=== PATIENT | female | born 1950 | race Caucasian/White ===

== ENCOUNTER 2024-08-16 10:36 | Emergency (ER) | payer OTHER, SELFPAY ==
[2024-08-16 10:39] VITALS: BP 190/95
--- NOTE | 2024-08-16 10:39 | ED.GENMED ---
ED Provider Triage
<Ericka Marie PA-C - Last Filed: 08/16/24 16:29>
-
Patient seen by provider in Triage?: Seen in Triage
Attestation: A medical screening examination has been initiated by a qualified medical provider. Based on the assessment performed at this time, it has been determined that an emergent medical condition may exist and the patient has been informed
that further medical evaluation and possible additional diagnostic testing may be needed.
HPI: 73yoF here after a syncopal episode around 5:30pm last night. She was on a 3 mile walk when she started to feel dizzy and felt like she had to sit down before passing out. Today feels like her heart is racing and sinus pressure.
GENERAL: Alert , in no apparent distress
EYE: No visual abnormalities.
NECK: Trachea midline
ENT: No visible abnormalities.
LUNGS: No acute respiratory distress
NEUROLOGICAL: Alert and oriented
SKIN: Skin intact. No visible changes.
MUSCULOSKELETAL: Moving extremities normally
PSYCH: Normal and appropriate interaction.
This is a medical evaluation conducted in person to initiate diagnostic evaluation and provide initial therapeutics. Please see further documentation by the treating clinician.
Cardiac labs and EKG ordered.
History of Present Illness
<Ericka Marie PA-C - Last Filed: 08/16/24 16:29>
General
Chief Complaint: Fainting/Passed Out
Time Seen by Provider: 08/16/24 12:20
<Charlotte Green DO - Last Filed: 08/16/24 13:09>
History of Present Illness
History of Present Illness:
73-year-old female no past medical history presenting status post syncopal episode yesterday. Patient states that yesterday, she went for her typical 3 mile walk. Patient states that at the end of her walk, she felt dizzy and had a syncopal
episode. Patient denies striking her head. Patient states that was witnessed by her friend who she was walking with. Patient denies any headaches, numbness, weakness, tingling, chest pain, shortness of breath. Patient states that this never
happened before. Patient notes that she only drank coffee yesterday. Patient states that she went home, drink a lot of water, seltzer and decaffeinated tea and then went to bed. Patient states that overnight she was having sinus pressure and felt
like her heart was racing. Patient denies any symptoms at this current time.
Phy Exam
<Charlotte Green DO - Last Filed: 08/16/24 13:09>
Physical Exam
Physical Exam:
General: Alert, no acute distress
Head: NCAT
Eyes: clear conjunctiva, PERRLA, EOMI
Neck: supple
Cardiac: regular rate and rhythm, no murmur
Lungs: clear to auscultation bilaterally. No wheezes, rales, or rhonchi. Speaking full unlabored sentences. No respiratory distress.
Abdomen: soft, nondistended nontender. No rebound or guarding.
MSK: no lower extremity edema bilaterally. No deformity
Skin: warm, dry
Neuro: Alert and oriented x3. CN II-XII grossly intact with no focal deficits. normal finger to nose. 5/5 strength bilateral upper and lower extremities. sensation intact throughout
Course
<Ericka Marie PA-C - Last Filed: 08/16/24 16:29>
Orders/Labs/Results
Orders:
Orders
08/16/24 10:42
Electrocardiogram (*1) Urgent
Reason for Study: Syncope
EKG- Treatment ONCE
08/16/24 10:53
Complete Blood Count/With Diff Urgent
Comprehensive Metabolic Panel Urgent
Troponin I Urgent
Abnormal Lab Results
08/16/24
10:53
WBC 4.7 L 10^3/uL
(4.8-10.8)
MCH 31.2 H pg
(27.0-31.0)
MPV 11.0 H fL
(7.4-10.4)
Absolute Lymphs (auto) 1.1 L 10^3/uL
(1.2-3.4)
Carbon Dioxide 31 H mmol/L
(22-30)
08/16/24 10:53
08/16/24 10:53
Vital Signs
Initial and Last Documented VS:
Initial Vital Signs
Temp Pulse Resp BP Pulse Ox
98.2 F 63 18 190/95 98
08/16/24 10:39 08/16/24 10:39 08/16/24 10:39 08/16/24 10:39 08/16/24 10:39
Last Documented Vital Signs
Temp Pulse Resp BP Pulse Ox
98.2 F 58 26 159/90 97
08/16/24 10:39 08/16/24 13:00 08/16/24 13:00 08/16/24 13:00 08/16/24 13:00
<Charlotte Green, DO - Last Filed: 08/16/24 13:09>
Orders/Labs/Results
Orders:
Orders
08/16/24 10:42
Electrocardiogram (*1) Urgent
Reason for Study: Syncope
EKG- Treatment ONCE
08/16/24 10:53
Complete Blood Count/With Diff Urgent
Comprehensive Metabolic Panel Urgent
Troponin I Urgent
Abnormal Lab Results
08/16/24
10:53
WBC 4.7 L 10^3/uL
(4.8-10.8)
MCH 31.2 H pg
(27.0-31.0)
MPV 11.0 H fL
(7.4-10.4)
Absolute Lymphs (auto) 1.1 L 10^3/uL
(1.2-3.4)
Carbon Dioxide 31 H mmol/L
(22-30)
08/16/24 10:53
08/16/24 10:53
Vital Signs
Initial and Last Documented VS:
Initial Vital Signs
Temp Pulse Resp BP Pulse Ox
98.2 F 63 18 190/95 98
08/16/24 10:39 08/16/24 10:39 08/16/24 10:39 08/16/24 10:39 08/16/24 10:39
Last Documented Vital Signs
Temp Pulse Resp BP Pulse Ox
98.2 F 58 26 159/90 97
08/16/24 10:39 08/16/24 13:00 08/16/24 13:00 08/16/24 13:00 08/16/24 13:00
<Charlotte Green DO - Last Filed: 08/16/24 13:09>
MDM/Problems Addressed
Differential Diagnosis Includes:
amy, nstemi, orthostatic hypotension, vasovagal syncope, anemia
MDM/Problems Addressed:
73yoF presenting with dizziness and subsequent syncopal episode yesterday at the end of her 3 mile walk. Pt states she only drank coffee prior to walking. Pt states it was warm outside. Pt denies any headache, chest pain, shortness of breath. Not on
blood thinners. No history of similar symptoms. Heart RRR, no murmur, lungs clear, neurologically intact with no focal deficits, head NCAT. Labs reviewed. Hemoglobin 13.4. Electrolytes within normal limits. Troponin within normal limits. EKG shows
NSR at 61bpm with OH 140 QTc 416 no acute ischemic changes. Vitals within normal limits. Suspect orthostatic given pt had walked 3 miles in the heat, felt dizzy prior to syncopal episode, was not hydrated prior to walk. Discussed results with
patient at bedside. Stable for discharge with PCP follow up
ED Attending Note
<Ericka Marie PA-C - Last Filed: 08/16/24 16:29>
-
Portions of this chart may have been created with voice recognition software.� Occasional wrong word or��sound alike� substitutions may have occurred due to the inherent limitations of voice recognition software.
Discharge Plan
Departure
Patient Disposition: Home (Routine Discharge)
Date of Disposition: 08/16/24
Time of Disposition: 13:09
Patient with high blood pressure during this ER visit?: Yes
Discharge Problem:
Dizziness, Syncope
Instructions: Syncope (Fainting) (DC), BLOOD PRESSURE
Referrals:
Shabnam Boyer, DO [Family Provider] -
Activity Restrictions/Additional Instructions:
Drink water, stay hydrated
Follow up with primary care doctor in 1-2 days
Return to the emergency department for chest pain, shortness of breath, numbness, weakness, tingling or new/worsening symptoms
Interventions
Interventions:
*Risk Screen - Suicide Last Done: 08/16/24 10:39
*General Assessment Last Done: 08/16/24 10:39
*Neglect/Abuse Screening Last Done: 08/16/24 10:39
ED- Fall Risk Assessment Last Done: 08/16/24 11:59
*ED COVID-19 Vaccine History Last Done: 08/16/24 10:39
*Nursing Disposition Last Done: 08/16/24 13:26
ED- Cardiac Assessment Last Done: 08/16/24 11:59
ED- Neurological Assessment Last Done: 08/16/24 11:59
Discharge Date and Time
Discharge Date/Time: 08/16/24 13:26
Print Language: [place]ET[place]ESE
[2024-08-16 11:03] LABS: % Basophils 1.5 % (0-2); % Immature Granulocytes 0.2 % (0-0.5); % Lymphocytes 22.9 % (20.5-51.1); % Monocytes 6.8 % (1.7-9.3); % Neutrophils 65.6 % (42.2-75.2); Absolute Basophils 0.1 10^3/uL (0-0.2); Absolute Eosinophils 0.1 10^3/uL (0-0.7); Absolute Lymphocytes 1.1 10^3/uL (1.2-3.4); Absolute Monocytes 0.3 10^3/uL (0.1-0.6); Absolute Neutrophils 3.1 10^3/uL (1.4-6.5); Hematocrit 38.7 % (37.0-47.0); Hemoglobin 13.4 g/dL (12.0-16.0); Mean Corp Hgb Conc. 34.6 g/dL (33.0-37.0); Mean Corpuscular Hgb 31.2 pg (27.0-31.0); Mean Corpuscular Volume 90.2 fL (81.0-99.0); Nucleated Red Blood Cells % 0 %; Platelet Count 148 10^3/uL (130-400); Red Blood Cell Count 4.29 10^6/uL (4.20-5.40); Red Cell Dist. Width 12.1 % (11.5-14.5); White Blood Cell Count 4.7 10^3/uL (4.8-10.8)
[2024-08-16 11:14] LABS: ALT (SGPT) 22 U/L (0-35); AST (SGOT) 29 U/L (14-36); Alkaline Phosphatase 63 U/L (38-126); Blood Urea Nitrogen 14 mg/dl (7-17); Calcium 9.6 mg/dl (8.4-10.2); Carbon Dioxide 31 mmol/L (22-30); Chloride 102 mmol/L (98-107); Glucose 86 mg/dl (70-99); Potassium 4.3 mmol/L (3.5-5.1); Sodium 140 mmol/L (135-145); Total Bilirubin 0.8 mg/dl (0.2-1.3); Total Protein 6.4 g/dl (6.3-8.2); eGFR > 60.00
[2024-08-16 11:24] LABS: Troponin I < 0.012 ng/ml
[2024-08-16 12:01] VITALS: BP 189/101
[2024-08-16 13:00] VITALS: BP 159/90
== END 2024-08-16 13:26 | disposition home or self-care (01) ==
LOC: EMR 10:36
PROVIDERS: Physician Assistant; EMERGENCY PHYSICIAN Emergency Medicine; FAMILY PHYSICIAN Family Medicine
DX: R55 Syncope and collapse (principal)
CPT/HCPCS: 99283; 80053; 84484; 85025; 93005

== ENCOUNTER 2024-08-18 18:19 | Emergency (ER) | payer OTHER, SELFPAY ==
[2024-08-18 18:25] VITALS: BP 218/119
[2024-08-18 18:47] LABS: % Basophils 0.8 % (0-2); % Immature Granulocytes 0.4 % (0-0.5); % Lymphocytes 16.8 % (20.5-51.1); % Monocytes 5.8 % (1.7-9.3); % Neutrophils 75.2 % (42.2-75.2); Absolute Basophils 0.1 10^3/uL (0-0.2); Absolute Eosinophils 0.1 10^3/uL (0-0.7); Absolute Lymphocytes 1.4 10^3/uL (1.2-3.4); Absolute Monocytes 0.5 10^3/uL (0.1-0.6); Absolute Neutrophils 6.3 10^3/uL (1.4-6.5); Hematocrit 39.5 % (37.0-47.0); Hemoglobin 13.8 g/dL (12.0-16.0); Mean Corp Hgb Conc. 34.9 g/dL (33.0-37.0); Mean Corpuscular Hgb 30.9 pg (27.0-31.0); Mean Corpuscular Volume 88.4 fL (81.0-99.0); Mean Platelet Volume 11.1 fL (7.4-10.4); Nucleated Red Blood Cells % 0 %; Platelet Count 166 10^3/uL (130-400); Red Blood Cell Count 4.47 10^6/uL (4.20-5.40); Red Cell Dist. Width 11.7 % (11.5-14.5); White Blood Cell Count 8.4 10^3/uL (4.8-10.8)
[2024-08-18 19:00] LABS: ALT (SGPT) 24 U/L (0-35); AST (SGOT) 33 U/L (14-36); Albumin 4.6 g/dl (3.5-5.0); Alkaline Phosphatase 70 U/L (38-126); Blood Urea Nitrogen 15 mg/dl (7-17); Calcium 9.7 mg/dl (8.4-10.2); Carbon Dioxide 30 mmol/L (22-30); Chloride 97 mmol/L (98-107); Glucose 100 mg/dl (70-99); Potassium 4.7 mmol/L (3.5-5.1); Sodium 135 mmol/L (135-145); Total Bilirubin 1.3 mg/dl (0.2-1.3); Total Protein 6.9 g/dl (6.3-8.2); eGFR > 60.00
[2024-08-18 21:43] VITALS: BP 205/96
[2024-08-18 21:45] VITALS: BMI 24.3
[2024-08-18 22:00] VITALS: BP 174/90
[2024-08-18 22:30] VITALS: BP 173/89
--- NOTE | 2024-08-18 23:51 | ED.GENMED ---
History of Present Illness
General
Chief Complaint: Blood Pressure Problem
Source: patient, family (Daughter at bedside) and previous hospital records (ED visit from 2 days ago)
Exam Limitations: none
Time Seen by Provider: 08/18/24 22:14
Nursing documentation reviewed up to this point in time: agreed with
History of Present Illness
History of Present Illness:
This is a 73-year-old woman with no significant past medical history who initially presented to this ED 2 days ago with complaints of syncopal episode that occurred the previous day after completing her usual 3 mile walk. She noted an abrupt onset
of lightheadedness, feeling faint causing her to reposition to place her head between her knees and the next thing she knows she was lying on the ground with her friend next to her. Symptoms resolved quickly and she was able to get up and walk to
her car and drive home without difficulty. No recurrent episodes but later that evening she developed some palpitations feeling that her heart was beating somewhat hard and mildly rapid without a sense of skipping beats thus she presented to the ED
the following day, 2 days ago. She has had no recurrent episodes of lightheadedness but she does admit that she feels that she is 'in a fog' and also notes mild left-sided head pressure. She denies hitting her head/no head injury during syncopal
event that was witnessed by her friend.
She was noted to be moderately hypertensive 2 days ago during that ED visit and since then she has been monitoring her blood pressure and is concerned with consistently elevated blood pressure. She admits that she has been checking her blood
pressure multiple times throughout the day today.
She denies chest pain, no further palpitations, no shortness of breath. She has continued her 3 mile brisk walks on a daily basis without symptomatology.
She does admit to mild sinus pressure but has not had a sore throat, no rhinorrhea, no fever, no ear pain. No vision difficulty.
She states routine visit with her primary care physician 1 month ago, BP within normal limits.
She takes no medicines on a daily basis. Denies decongestant use.
Past History
Past History
ED Past Medical History: None
ED Past Surgical History: Tonsilectomy and Other (Hernia repair)
Social History
Tobacco: Non-smoker
Alcohol: Occasional (Rare)
Drug: None
Personal: Single
Employment: Retired
Family History
Family History: Other (Noncontributory)
Phy Exam
Physical Exam
Physical Exam:
GENERAL: 73-year-old woman appears her stated age, awake and alert, pleasant, appears in no acute distress. Very mild, nasal sounding voice without significant congestion.
EYE: pupils equal and reactive. Extraocular muscles intact. Anicteric
NECK: Supple, nontender, no meningismus, no significant adenopathy.
ENT: posterior pharynx is clear, oral mucosa is moist. TM clear b/l, nares with moderately boggy pale blue turbinates.
CARDIAC: Regular rate and rhythm. no murmur.
LUNGS: Clear breath sounds bilaterally, no acute respiratory distress, no wheezes/rales/rhonchi
ABDOMEN: Soft, nondistended, without focal tenderness, no r/g, normoactive BS.
NEUROLOGICAL: Alert and oriented x3, no focal neuro deficits. Gait is steady.
SKIN: Warm and dry, normal color, skin intact. No rash.
MUSCULOSKELETAL: No C/C/E. peripheral pulses are full and equal b/l. No palpable tenderness.
PSYCH: Normal and appropriate interaction.
Course
Orders/Labs/Results
Orders:
Orders
08/18/24 18:30
Electrocardiogram (*1) Urgent
Reason for Study: Chest Pain
EKG- Treatment ONCE
08/18/24 18:41
Complete Blood Count/With Diff Urgent
Comprehensive Metabolic Panel Urgent
08/18/24 22:52
CT Head W/o Iv Contrast Urgent
Comment:
Reason For Exam: acute left sided H/A, HTN
Abnormal Lab Results
08/18/24
18:41
MPV 11.1 H fL
(7.4-10.4)
Lymphocytes % 16.8 L %
(20.5-51.1)
Chloride 97 L mmol/L
(98-107)
Glucose 100 H mg/dl
(70-99)
08/18/24 18:41
08/18/24 18:41
Vital Signs
Initial and Last Documented VS:
Initial Vital Signs
Temp Pulse Resp BP Pulse Ox
97.7 F 71 16 218/119 98
08/18/24 18:25 08/18/24 18:25 08/18/24 18:25 08/18/24 18:25 08/18/24 18:25
Last Documented Vital Signs
Temp Pulse Resp BP Pulse Ox
97.7 F 60 18 173/89 95
08/18/24 18:25 08/18/24 22:30 08/18/24 22:30 08/18/24 22:30 08/18/24 22:30
MDM/Problems Addressed
Differential Diagnosis Includes:
Patient presents with elevated BP without prior history of hypertension. She does note mild left frontal headache and has had some sinus congestion.
She may have element of allergic rhinitis, sinus headache but must also consider intracranial bleeding, mass.
Syncopal event from 3 days ago was also concerning but reassuring that she has had no recurrent episodes and has remained active, exercising on a regular basis without symptomatology.
Will check CT of the head.
Will check labs assess for potential end-organ damage.
EKG similar to previous, normal sinus rhythm at 64. Low voltage, otherwise unremarkable.
*Radiology
Radiology exam reviewed: radiology read reviewed (CT of the head is unremarkable)
*Pulse Oximetry
Patient hypoxic: no
*EKG
Interpreted by ED Provider?: Yes
Interpretation: normal
Comparison EKG: no changes (Unchanged from previous August 16)
Rate: normal
Rhythm: sinus
[place]: normal axis
QRS Pattern: low voltage
Ischemia: no ischemia
*Christ[facility] Bell Ringer Interpretation
Rate: normal
Interpretation: normal
Rhythm: sinus
*Critical Care Note
Total Time (30-74mins, 75-104mins- exclusive of procedures): Not Applicable
Update Note
Update Note:
Blood pressure improving without intervention. Continues with mild to moderate systolic hypertension with normal diastolic readings.
She continues with very mild left frontal head discomfort but overall well in appearance, no focal neurodeficits.
Moderate allergic rhinitis appearance on exam. And I suspect an element of a sinus headache.
CT of the head is unremarkable.
Labs are unremarkable.
At this point would not initiate antihypertensive medication but would recommend she continue to monitor blood pressure but no more than once per day, record results with prompt follow-up with PCP.
She notes previous adverse reaction to nasal steroids as well as oral steroids causing some agitation, anxiety thus recommend trial of a nasal antihistamine for allergic rhinitis as well as Tylenol for headache.
ED Attending Note
-
Portions of this chart may have been created with voice recognition software.� Occasional wrong word or��sound alike� substitutions may have occurred due to the inherent limitations of voice recognition software.
Discharge Plan
Departure
Patient Disposition: Home (Routine Discharge)
Date of Disposition: 08/19/24
Time of Disposition: 00:37
Patient with high blood pressure during this ER visit?: Yes
Condition: Good
Discharge Problem:
Elevated blood pressure reading without diagnosis of hypertension, Sinus headache
Instructions: Sinus Headache (DC), BLOOD PRESSURE
Referrals:
Shabnam Boyer, DO [Family Provider] - Follow up in 2-3 days
Activity Restrictions/Additional Instructions:
Continue to monitor your blood pressure but no more than once per day, record results and follow-up with primary care physician with recordings.
You may take Tylenol as needed for headache and recommend trial of an antihistamine nasal spray, such as Astelin, for seasonal allergy.
Interventions
Interventions:
*Risk Screen - Suicide Last Done: 08/18/24 18:25
*General Assessment Last Done: 08/18/24 18:25
*Neglect/Abuse Screening Last Done: 08/18/24 18:25
ED- Fall Risk Assessment Last Done: 08/18/24 21:45
*ED COVID-19 Vaccine History Last Done: 08/18/24 21:45
*Nursing Disposition Last Done: 08/19/24 02:22
ED- Cardiac Assessment Last Done: 08/18/24 21:46
ED- Neurological Assessment Last Done: 08/18/24 21:46
ED- Pulmonary Assessment Last Done: 08/18/24 21:46
Discharge Date and Time
Discharge Date/Time: 08/19/24 02:23
Print Language: [place]
== END 2024-08-19 02:23 | disposition home or self-care (01) ==
LOC: EMR 18:19
PROVIDERS: Emergency Medicine; EMERGENCY PHYSICIAN Emergency Medicine; FAMILY PHYSICIAN Family Medicine
DX: R51.9 Headache, unspecified (principal); R03.0 Elevated blood-pressure reading, without diagnosis of hypertension; J34.89 Other specified disorders of nose and nasal sinuses
CPT/HCPCS: 99284; 70450; 80053; 85025; 93005

== ENCOUNTER → 2025-02-14 08:24 | Outpatient (REF) | payer OTHER, SELFPAY | LOC: RCS 08:24 | PROVIDERS: ATTENDING PHYSICIAN Internal Medicine Cardiovascular Disease; FAMILY PHYSICIAN Family Medicine | DX: R06.02 Shortness of breath (principal) | CPT/HCPCS: 93017; 93350 ==